=== PATIENT | female | born 1985 | race Two or more races ===

== ENCOUNTER 2023-05-30 21:13 | Outpatient (REF) | payer BC, SELFPAY ==
[2023-06-03 16:08] LABS: Age Gdln ACOG Testing Note (.); HPV Aptima Negative (Negative); IGP, Aptima HPV, rfx 16/18,45 Note (.)
== END 2023-05-30 21:14 | disposition home or self-care (01) ==
LOC: LAB 21:13
PROVIDERS: Visit Provider Obstetrics & Gynecology
DX: Z01.419 Encounter for gynecological examination (general) (routine) without abnormal findings (principal)
CPT/HCPCS: 87624; G0145

== ENCOUNTER 2024-06-05 19:57 | Outpatient (REF) | payer BC, SELFPAY ==
--- OUTSIDE RECORDS SUMMARY | 2024-06-05 20:01 | XMS_ITS | CCD ---
Author Organization [facility] Care Team Providers Care Venue Coordinator Name Role Phone RADHA, DR SOLIZ Attending Unavailable RADHA, DR SOLIZ Admitting Unavailable RADHA, DR SOLIZ Consulting Unavailable RADHA, DR SOLIZ Attending Unavailable RADHA, DR SOLIZ Admitting Unavailable RADHA, DR SOLIZ Consulting Unavailable RADHA, DR SOLIZ Consulting Unavailable RADHA, DR SOLIZ Attending Unavailable RADHA, DR SOLIZ Admitting Unavailable RADHA, MARTÍNEZ Attending Unavailable RADHA, MARTÍNEZ Attending Unavailable Valentin Sonia PRICE Primary Care Provider VALENTIN, MUHAMID M Referring Unavailable VALENTIN, MUHAMID M Primary Care Unavailable VALENTIN, MUHAMID M Referring Unavailable VALENTIN, MUHAMID M Primary Care Unavailable VALENTIN, MUHAMID M Referring Unavailable VALENTIN, MUHAMID M Primary Care Unavailable VALENTIN, MUHAMID M Referring Unavailable VALENTIN, MUHAMID M Primary Care Unavailable VALENTIN, MUHAMID M Attending Unavailable VALENTIN, MUHAMID M Referring Unavailable VALENTIN, MUHAMID M Primary Care Unavailable VALENTIN, MUHAMID M Attending Unavailable VALENTIN, MUHAMID M Referring Unavailable VALENTIN, MUHAMID M Primary Care Unavailable DAYDAY MELENDEZ Attending Unavailable VALENTIN, MUHAMID M Referring Unavailable VALENTIN, MUHAMID M Primary Care Unavailable VALENTIN, MUHAMID M Attending Unavailable VALENTIN, MUHAMID M Referring Unavailable VALENTIN, MUHAMID M Primary Care Unavailable VALENTIN, MUHAMID M Referring Unavailable VALENTIN, MUHAMID M Primary Care Unavailable Valentin Sonia PRICE Primary Care Provider [phone] Medications Current Medications Medication Drug Class(es) Dates Sig (Normalized) Sig (Original) cholecalciferol 0.025 mg oral tablet (4 sources) Vitamin D Start: 01-04-2024 take 1 tablet by mouth once in the morning cholecalciferol 1,000 units tablet Indications: Vitamin D deficiency Take 1 tablet (1,000 Units total) by mouth in the morning. 90 tablet 2 01/04/2024 Active ergocalciferol 1.25 mg oral capsule (2 sources) Provitamin D2 Compound Start: 09-26-2023 End: 11-15-2023 take 1 capsule by mouth every week ergocalciferol (VITAMIN D2) 1,250 mcg (50,000 unit) capsule Indications: Vitamin D deficiency Take 1 capsule (50,000 Units total) by mouth once a week for 8 doses. 8 capsule 0 09/26/2023 11/15/2023 Active levonorgestrel 0.572030 mg/hr intrauterine system (14 sources) Progestin, Progestin-contain ing Intrauterine Device Start: 06-27-2023 Levonorgestrel intrauterine device Levonorgestrel 2 0 MCG/DAY intrauterine device 1 each by Intrauterine route if needed (.). Active levonorgestrel ( MIRENA) 20 mcg/24 hours (5 yrs) 52 mg IUD 1 each by intrauterine route once. Active levothyroxine sodium 0.025 mg oral tablet (17 sources) l-Thyroxine Start: 06-05-2024 End: 06-05-2025 take 1 tablet by mouth before mealtime levothyroxine (Synthroid) 25 MCG tablet Indications: Thyroid disease (CMS/HCC) Take 1 tablet (25 mcg) by mouth in the morning. Take before meals. 30 tablet 11 06/05/2024 06/05/2025 Active Start: 05-13-2024 take 1 tablet by fabián th in the morning levothyroxine (SYNTHROID, LEVOTHROID) 112 MCG tablet Take 1 tablet (112 mcg total) by mouth in the morning. 90 tablet 1 05/13/2024 Active Start: 02-08-2024 End: 05-13-2024 take 1 tablet by mouth in the morning levothyroxine (SYNTHROID, LEVOTHROID) 100 MCG tablet Indications: Other specified hypothyroidism Take 1 tablet (100 mcg total) by mouth in the morning. 90 tablet 1 02/08/2024 05/13/2024 Discontinued Start: 09-26-2023 End: 10-02-2023 take 1 tablet by mouth in the morning levothyroxine (SYNTHROID, LEVOTHROID) 150 MCG tablet Indications: Other specified hypothyroidism Take 1 tablet (150 mcg total) by mouth in the morning. 30 tablet 2 10/02/2023 Active Start: 08-10-2023 End: 09-26-2023 take 1 tablet by mouth in the morning levothyroxine (SYNTHROID, LEVOTHROID) 175 MCG tablet Indications: Other specified hypothyroidism Take 1 tablet (175 mcg total) by mouth in the morning. 30 tablet 2 08/10/2023 09/26/2023 Discontinued Start: 06-11-2023 End: 08-10-2023 take 1 tablet by mouth in the morning levothyroxine (SYNTHROID, LEVOTHROID) 125 MCG tablet Indications: Other specified hypothyroidism TAKE 1 TABLET (125 MCG TOTAL) BY MOUTH IN THE MORNING 90 tablet 0 06/11/2023 08/10/2023 Discontinued levothyroxine (S ynthroid, Levoxyl) 125 MCG tablet Take 112 mcg by mouth in the morning. Take before meals. Active mirtazapine 7.5 mg oral tablet (1 source) Start: 05-13-2024 take 1 tablet by mouth once daily mirtazapine (REMERON) 7.5 mg tablet Take 1 tablet (7.5 mg total) by mouth nightly. 90 tablet 2 05/13/2024 Active Problems Active Problems Problem Classification Problem Date Documented Date Episodic/Chronic Immunizations and screening for infectious disease (2 sources) Encounter for screening for human papillomavirus (HPV); Translations: [Encounter for screening for infections with a predominantly sexual mode of transmission] Onset: 01-24-2022 Episodic Nutritional deficiencies (3 sources) Vitamin D deficiency; Translations: [Vitamin D deficiency, unspecified] Onset: 09-26-2023 09-26-2023 Chronic Other nutritional; endocrine; and metabolic disorders (1 source) Obesity Onset: 09-26-2023 Chronic Other screening for suspected conditions (not mental disorders or infectious disease) (4 sources) Encounter for screening for malignant neoplasm of cervix; Translations: [ENC SCREENING MALIG NEOPLASM CERV] Onset: 05-25-2022 Episodic Thyroid disorders (20 sources) Acquired hypothyroidism; Translations: [Hypothyroidism, unspecified] Onset: 11-21-2018 08-08-2023 Chronic Thyroid disorders (2 sources) Disorder of thyroid gland; Translations: [Disorder of thyroid, unspecified] 06-05-2024 Episodic Unclassified (1 source) Results Onset: 12-05-2023 Unclassified (1 source) Thyroid Problem Onset: 09-26-2023 Unclassified (1 source) Establish Care Onset: 08-10-2023 Past or Other Problems Problem Classification Problem Date Documented Date Episodic/Chronic Genitourinary symptoms and ill-defined conditions (4 sources) Unspecified symptoms and signs involving the genitourinary system; Translations: [UNS SYMPTOMS SIGNS INVLV SYSTEM] Onset: 01-20-2022 Episodic Mood disorders (8 sources) Mood disorders Onset: 11-18-2021 11-18-2021 Other female genital disorders (1 source) Other specified noninflammatory disorders of vagina; Translations: [OTH SPEC NONINFLAMMATORY D/O VAGINA] Onset: 01-24-2022 Episodic Unclassified (8 sources) Onset: 05-18-2021 05-18-2021 Results Test Name Value Interpretation Reference Range Facility FREE T4on 04-26-2024 Free T4 [Mass/Vol] 1.00 ng/dL Normal 0.61-1.60 [facility] Comment on above: Performed By: #### T [facility], 3024-7 #### [facility] ([id number]) [address] [place] [address] TSH WITH REFLEXon 04-26-2024 TSH 6.15 uIU/mL High 0.49-4.67 [facility] Comment on above: Performed By: #### T [facility], 3024-7 #### [facility] ([id number]) [address] [place] [address] FREE T4on 02-07-2024 Free T4 [Mass/Vol] 1.17 ng/dL Normal 0.61-1.60 [facility] Comment on above: Performed By: #### 2 4331-1, THYR, THYRAB #### [facility] ([id number]) [address] [place] [address] THYROID ANTIBODIESon 024 Thyroglobulin Ab Qn [IU]/mL Normal <4.0 [facility] Comment on above: Performed By: #### 2 4331-1, THYR, THYRAB #### [facility] ([id number]) [address], [address] [place] [address] TPO Ab Qn 1 [IU]/mL Normal <10 [facility] Comment on above: Performed By: #### 2 4331-1, THYR, THYRAB #### [facility] ([id number]) [address], [address] [place] [address] TSH WITH REFLEXon 02-07-2024 TSH 0.23 uIU/mL Low 0.49-4.67 [facility] Comment on above: Performed By: #### 2 4331-1, THYR, THYRAB #### [facility] ([id number]) [address], [address] [place] [address] FREE T4on 12-04-2023 Free T4 [Mass/Vol] 1.22 ng/dL Normal 0.61-1.60 [facility] Comment on above: Performed By: #### 2 4331-1, THYR, THYRAB #### [facility] ([id number]) [address], [address] [place] [address] TSH WITH REFLEXon 12-04-2023 TSH 0.03 uIU/mL Low 0.49-4.67 [facility] Comment on above: Performed By: #### 2 4331-1, THYR, THYRAB #### [facility] ([id number]) [address], [address] [place] [address] Vitamin D+Metabolites [Mass/ Vol]on 12-04-2023 VITAMIN D 25 HYD TOT 19.3 ng/mL Low 30-100 [facility] Comment on above: Result Comment: Vitamin D status 25 [place] Vitamin D Deficiency <20 ng/mL Insufficiency 20-29 ng/mL Sufficiency 30-100 ng/mL Toxicity >100 ng/mL NOTE: A pediatric reference range has not been established by the improvement leader of this kit. The [place] [employer] recommends a Vitamin D level of = or >20ng/mL in infants and children. Performed By: #### 2 4331-1, THYR, THYRAB #### [facility] ([id number]) [address] [address] CBC AND AUTO DIFFon 09-26-19 ABSOLUTE BASOPHIL 0.0 X10E9/L Normal 0.0-0.2 [facility] Comment on above: Performed By: #### C BCA, CMP, 53748-7, , TSHR, 38540-6, 3024-7 #### [facility] ([id number]) [address] [place] [address] ABSOLUTE NEUTROPHIL 2.5 X10E9/L Normal 1.5-6.6 [facility] Comment on above: Performed By: #### C BCA, CMP, 50228-7, , TSHR, 33149-4, 3024-7 #### [facility] ([id number]) [address] [address] Basophils/100 WBC (Bld) 0.7 % Normal [facility] Comment on above: Performed By: #### C BCA, CMP, 83499-7, 42428-0, TSHR, 14282-1, 3024-7 #### [facility] ([id number]) [address] [address] [facility] [place] [address] Eosinophils (Bld) [#/Vol] 0.1 10*3/uL Normal 0.0-0.4 [facility] Comment on above: Performed By: #### C BCA, CMP, 90366-0, 55435-8, TSHR, 49083-7, 302-7 #### [facility] ([id number]) [address] [place] [address] Eosinophils/100 WBC (Bld) 1.5 % Normal [facility] Comment on above: Performed By: #### C BCA, CMP, 70323-3, , TSHR, 83593-9, 302-7 #### [facility] ([id number]) [address] [address] [place] [address] Erythrocyte distribution width (RBC) [Ratio] 12.7 % Normal 11.5-15.0 [facility] Comment on above: Performed By: #### C BCA, CMP, 37667-3, , TSHR, 70799-6, 3023-7 #### [facility] ([id number]) [address] [address] [place] [address] Hematocrit (Bld) [Volume fraction] 37.1 % Normal 35-47 [facility] Comment on above: Performed By: #### C BCA, CMP, 76618-3, , TSHR, 21944-8, 302-7 #### [facility] ([id number]) [address] [address] [place] [address] Hemoglobin (Bld) [Mass/Vol] 12.8 g/dL Normal 11.7-15.5 [facility] Comment on above: Performed By: #### C BCA, CMP, 93528-3, , TSHR, 24902-2, 3024-7 #### [facility] ([id number]) [address] [address] [place] [address] Lymphocytes (Bld) [#/Vol] 1.9 10*3/uL Normal 1.0-3.5 [facility] Comment on above: Performed By: #### C BCA, CMP, 82604-7, 61770-9, TSHR, 89223-8, 3023-7 #### [facility] ([id number]) [address], [address] [place] [address] Lymphocytes/100 WBC (Bld) 39.0 % Normal [facility] Comment on above: Performed By: #### C BCA, CMP, 18751-2, , TSHR, 37286-4, 3023-7 #### [facility] ([id number]) [address], [address] [place] [address] MCH (RBC) [Entitic mass] 31.1 pg Normal 27-34 [facility] Comment on above: Performed By: #### C BCA, CMP, 55344-7, , TSHR, 27043-5, 3023- #### [facility] ([id number]) [address], [address] [place] [address] MCHC (RBC) [Mass/Vol] 34.6 g/dL Normal 32-36 [facility] Comment on above: Performed By: #### C BCA, CMP, 54066-8, , TSHR, 35585-1, 3023- #### [facility] ([id number]) [address], [address] [place] [address] MCV (RBC) [Entitic vol] 90 fL Normal 80-100 [facility] Comment on above: Performed By: #### C BCA, CMP, 94227-9, , TSHR, 89983-9, 3023-7 #### [facility] ([id number]) [address], [address] [place] [address] Monocytes (Bld) [#/Vol] 0.5 10*3/uL Normal 0-0.9 [facility] Comment on above: Performed By: #### C BCA, CMP, 51676-4, , TSHR, 89481-8, 3023-7 #### [facility] ([id number]) [address], [address] [place] [address] Monocytes/100 WBC (Bld) 9.5 % Normal [facility] Comment on above: Performed By: #### C BCA, CMP, 85760-7, 65192-5, TSHR, 43430-7, 3024-7 #### [facility] ([id number]) [address], [address] [place] [address] Neutrophils/100 WBC (Bld) 49.3 % Normal [facility] Comment on above: Performed By: #### C BCA, CMP, 32951-4, 03299-2, TSHR, 70952-7, 3024-7 #### [facility] ([id number]) [address], [address] [place] [address] Platelet mean volume (Bld) [Entitic vol] 8.0 fL Normal 7-12 [facility] Comment on above: Performed By: #### C BCA, CMP, 54362-5, 48158-5, TSHR, 51811-8, 3024-7 #### [facility] ([id number]) [address], [address] [place] [address] Platelets (Bld) [#/Vol] 269 10*3/uL Normal 150-450 [facility] Comment on above: Performed By: #### C BCA, CMP, 84313-4, 90395-5, TSHR, 66429-5, 3024-7 #### [facility] ([id number]) [address], [address] [place] [address] RBC COUNT 4.13 X10E12/L Normal 3.80-5.20 [facility] Comment on above: Performed By: #### C BCA, CMP, 10181-1, 54539-4, TSHR, 20565-5, 3024-7 #### [facility] ([id number]) [address], [address] [place] [address] WBC (Bld) [#/Vol] 5.0 10*3/uL Normal 4.0-11.0 [facility] Comment on above: Performed By: #### C BCA, CMP, 49527-1, 71291-6, TSHR, 90395-2, 3024-7 #### [facility] ([id number]) [address], [address] [place] [address] COMPREHENSIVE METABOLIC PANE Vance 09-26-2023 Albumin [Mass/Vol] 4.1 g/dL Normal 3.2-5.3 [facility] Comment on above: Performed By: #### C BCA, CMP, 83198-1, 09071-5, TSHR, 47381-1, 3024-7 #### [facility] ([id number]) [address], [address] [place] [address] ALP [Catalytic activity/Vol] 44 U/L Normal 39-130 [facility] Comment on above: Performed By: #### C BCA, CMP, 63427-3, 57334-0, TSHR, 86850-9, 3024-7 #### [facility] ([id number]) [address], [address] [place] [address] ALT [Catalytic activity/Vol] 13 U/L Normal 0-31 [facility] Comment on above: Performed By: #### C BCA, CMP, 70417-6, 70865-9, TSHR, 10450-7, 3024-7 #### [facility] ([id number]) [address], [address] [place] [address] Anion gap [Moles/Vol] 7 mmol/L Normal 5-15 [facility] Comment on above: Performed By: #### C BCA, CMP, 81861-7, 61314-1, TSHR, 29259-6, 3024-7 #### [facility] ([id number]) [address], [address] [place] [address] AST [Catalytic activity/Vol] 16 U/L Normal 0-41 [facility] Comment on above: Performed By: #### C BCA, CMP, 76473-5, 83821-2, TSHR, 29632-1, 3024-7 #### [facility] ([id number]) [address], [address] [place] [address] Bilirubin [Mass/Vol] 0.6 mg/dL Normal 0.3-1.2 [facility] Comment on above: Performed By: #### C BCA, CMP, 27973-1, , TSHR, 93983-9, 3024-7 #### [facility] ([id number]) [address], [address] [place] [address] Calcium [Mass/Vol] 9.4 mg/dL Normal 8.5-10.5 [facility] Comment on above: Performed By: #### C BCA, CMP, 54163-4, , TSHR, 00308-3, 3024-7 #### [facility] ([id number]) [address], [address] [place] [address] Chloride [Moles/Vol] 107 mmol/L Normal 98-109 [facility] Comment on above: Performed By: #### C BCA, CMP, 58012-7, , TSHR, 58115-3, 3024-7 #### [facility] ([id number]) [address], [address] [place] [address] CO2 [Moles/Vol] 26 mmol/L Normal 22-32 [facility] Comment on above: Performed By: #### C BCA, CMP, 68426-4, 24560-5, TSHR, 01136-6, 3024-7 #### [facility] ([id number]) [address], [address] [place] [address] Creatinine [Mass/Vol] 0.63 mg/dL Normal 0.40-1.00 [facility] Comment on above: Result Comment: METH OD TRACEABLE TO IDMS STANDARD Performed By: #### C BCA, CMP, 04611-0, 98384-7, TSHR, 56086-8, 3024-7 #### [facility] ([id number]) [address] [place] [address] eGFR (CKD-EPI) NON-RACE DEPENDENT >90 Normal >59 [facility] Comment on above: Result Comment: Reported eGFR is based on the CKD-EPI 2020 equation that does not use a race coefficient. Performed By: #### C BCA, CMP, 77798-8, 47521-7, TSHR, 95501-7, 3024-7 #### [facility] ([id number]) [address], [address] [place] [address] Glucose [Mass/Vol] 87 mg/dL Normal 65-99 [facility] Comment on above: Performed By: #### C BCA, CMP, 89097-6, 97575-2, TSHR, 41381-0, 3024-7 #### [facility] ([id number]) [address], [address] [place] [address] Potassium [Moles/Vol] 4.2 mmol/L Normal 3.5-5.0 [facility] Comment on above: Performed By: #### C BCA, CMP, 24803-5, 79749-9, TSHR, 59267-9, 3024-7 #### [facility] ([id number]) [address] [place] [address] Protein [Mass/Vol] 6.9 g/dL Normal 6.0-8.0 [facility] Comment on above: Performed By: #### C BCA, CMP, 53550-3, 26385-6, TSHR, 63514-7, 3024-7 #### [facility] ([id number]) [address], [address] [place] [address] Sodium [Moles/Vol] 140 mmol/L Normal 134-146 [facility] Comment on above: Performed By: #### C BCA, CMP, 76699-0, 03352-2, TSHR, 47112-6, 3024-7 #### [facility] ([id number]) [address], [facility] [address] [place] [address] Urea nitrogen [Mass/Vol] 14 mg/dL Normal 5-23 [facility] Comment on above: Performed By: #### C BCA, CMP, 12943-4, 91917-9, TSHR, 50146-9, 3024-7 #### [facility] ([id number]) [address], [facility] [address] [place] [address] FREE T4on 09-26-2023 Free T4 [Mass/Vol] 1.10 ng/dL Normal 0.61-1.60 [facility] Comment on above: Performed By: #### C BCA, CMP, 03144-7, 77860-6, TSHR, 89036-9, 3024-7 #### [facility] ([id number]) [address], [facility] [address] [place] [address] Lipid 1996 panelon 4 Cholesterol [Mass/Vol] 146 mg/dL Low 150-200 [facility] Comment on above: Performed By: #### C BCA, CMP, 72738-5, 26871-5, TSHR, 88921-3, 3024-7 #### [facility] ([id number]) [address], [address] [place] [address] Cholesterol in HDL [Mass/Vol] 42 mg/dL Normal >39 [facility] Comment on above: Result Comment: HDL <40 mg/dL - High Risk HDL > or = 40mg/dL- Desirable HDL >60 mg/dL - Negative Risk Performed By: #### C BCA, CMP, 64507-7, 59639-9, TSHR, 78499-7, 3024-7 #### [facility] ([id number]) [address], [address] [place] [address] Cholesterol in LDL [Mass/Vol] 84 mg/dL Normal <130 [facility] Comment on above: Result Comment: LDL <100 mg/dL - Desirable LDL >160 mg/dL - High Risk Performed By: #### C BCA, CMP, 64265-9, 78684-9, TSHR, 20322-2, 3024-7 #### [facility] ([id number]) [address], [address] [place] [address] Cholesterol in VLDL [Mass/Vol] 20 mg/dL Normal 0-30 [facility] Comment on above: Performed By: #### C BCA, CMP, 93158-0, 09123-1, TSHR, 45135-3, 3024-7 #### [facility] ([id number]) [address], [address] [place] [address] CHOLESTEROL:HDL 3.5 Normal 1.0-5.0 [facility] Comment on above: Performed By: #### Darius BCA, CMP, 89228-7, 13973-7, TSHR, 68737-4, 3024-7 #### [facility] ([id number]) [address], [address] [place] [address] Triglyceride [Mass/Vol] 101 mg/dL Normal 27-150 [facility] Comment on above: Performed By: #### C BCA, CMP, 14751-0, 54820-3, TSHR, 84358-5, 3024-7 #### [facility] ([id number]) [address], [address] [place] [address] MAGNESIUMon 09-26-2023 Magnesium [Mass/Vol] 1.9 mg/dL Normal 1.8-2.6 [facility] Comment on above: Performed By: #### C CHATO, ISAMAR, 20136-5, , TSHR, 38505-3, 3024-7 #### [facility] ([id number]) [address], [address] [place] [address] TSH WITH REFLEXon 09-26-2023 TSH 0.06 uIU/mL Low 0.49-4.67 [facility] Comment on above: Performed By: #### C CHATO, ISAMAR, 07883-2, , TSHR, 88054-6, 3024-7 #### [facility] ([id number]) [address] [place] [address] Vitamin D+Metabolites [Mass/ Vol]on 09-26-2023 VITAMIN D 25 HYD TOT 16.3 ng/mL Low 30-100 [facility] Comment on above: Result Comment: Vitamin D status 25 [place] Vitamin D Deficiency <20 ng/mL Insufficiency 20-29 ng/mL Sufficiency 30-100 ng/mL Toxicity >100 ng/mL NOTE: A pediatric reference range has not been established by the improvement leader of this kit. The [place] [employer] recommends a Vitamin D level of = or >20ng/mL in infants and children. Performed By: #### C CHATO, CMP, 53331-2, , TSHR, 75081-3, 3024-7 #### [facility] ([id number]) [address], [address] [place] [address] Lipid 1996 panelon 4 Cholesterol [Mass/Vol] 175 mg/dL 150 - 200 mg/dL [facility] Cholesterol in HDL [Mass/Vol] 52 mg/dL 39 - PINF mg/dL [facility] Comment on above: HDL <40 mg/dL - High Risk HDL > or = 40mg/dL- Desirable HDL >60 mg/dL - Negative Risk Cholesterol in LDL [Mass/Vol] 98 mg/dL NINF - 130 mg/dL [facility] Comment on above: LDL <100 mg/dL - Desirable LDL >160 mg/dL - High Risk Cholesterol in VLDL [Mass/Vol] 25 mg/dL 0 - 30 mg/dL [facility] Cholesterol.total/Ch olesterol in HDL [Mass ratio] 3.4 {ratio} 1.0 - 5.0 [facility] Triglyceride [Mass/Vol] 126 mg/dL 27 - 150 mg/dL [facility] Cholesterol [Mass/Vol] 175 mg/dL Normal 150-200 [facility] Comment on above: Performed By: #### 2 4331-1CHELSIE THYRAB #### [facility] ([id number]) [address], [address] [place] [address] Cholesterol in HDL [Mass/Vol] 52 mg/dL Normal >39 [facility] Comment on above: Result Comment: HDL <40 mg/dL - High Risk HDL > or = 40mg/dL- Desirable HDL >60 mg/dL - Negative Risk Performed By: #### 2 4331-1, ANDREW HOLGUIN #### [facility] [facility] ([id number]) [address] [place] [address] Cholesterol in LDL [Mass/Vol] 98 mg/dL Normal <130 [facility] Comment on above: Result Comment: LDL <100 mg/dL - Desirable LDL >160 mg/dL - High Risk Performed By: #### 2 4331-1, THYR, THYRAB #### [facility] ([id number]) [address] [address] [place] [address] Cholesterol in VLDL [Mass/Vol] 25 mg/dL Normal 0-30 [facility] Comment on above: Performed By: #### 2 4331-1, THYR, THYRAB #### [facility] ([id number]) [address] [facility] [address] [place] [address] CHOLESTEROL:HDL 3.4 Normal 1.0-5.0 [facility] Comment on above: Performed By: #### 2 4331-1, THYR, THYRAB #### [facility] ([id number]) [address] [facility] [address] [place] [address] Triglyceride [Mass/Vol] 126 mg/dL Normal 27-150 [facility] Comment on above: Performed By: #### 2 4331-1, THYR, THYRAB #### [facility] ([id number]) [address], [facility] [address] [place] [address] THYROID ANTIBODIESon 024 Thyroglobulin Ab Qn [IU]/mL Normal <4.0 [facility] Comment on above: Performed By: #### 2 4331-1, THYR, THYRAB #### [facility] ([id number]) [address] [facility] [address] [place] [address] TPO Ab Qn 2 [IU]/mL Normal <10 [facility] Comment on above: Performed By: #### 2 4331-1, THYR, THYRAB #### [facility] ([id number]) [address], [address] [place] [address] THYROID PROFILEon 08-09-2023 Free T4 [Mass/Vol] 0.71 ng/dL Normal 0.61-1.60 [facility] Comment on above: Performed By: #### 2 4331-1, THYR, THYRAB #### [facility] ([id number]) [address], [address] [place] [address] TSH 8.33 uIU/mL High 0.49-4.67 [facility] Comment on above: Performed By: #### 2 4331-1, THYR, THYRAB #### [facility] ([id number]) [address], [address] [place] [address] Thyroid antibodies includes TPO and TGABon 08-09-2023 Thyroglobulin Ab Qn [facility] TPO Ab Qn 2 [IU]/mL [facility] Thyroid profile includes TSH FT4on 08-09-2023 Free T4 [Mass/Vol] 0.71 ng/dL 0.61 - 1. 60 ng/dL [facility] Interpretation and review of laboratory results Abnormal [facility] TSH Qn 8.33 m[IU]/L High [facility] Cytology Cervical or vaginal smear or scraping studyOrdered By: Caitlyn Courtney on 05-30-2023 [facility] e PAP ACOG PANEL 2: 30 to 65on 06-03-2022 . . Normal [facility] Comment on above: Result Comment: Perf ormed at: WB Performed By: #### 4 [id number] #### [facility] [address] [place] [address] Dr. Nicole Buckley Age Gdln ACOG Testing 30-65 Normal [facility] Comment on above: Performed By: #### 4 [id number] #### [facility] [address] [place] [address] Dr. Nicole Buckley DIAGNOSIS: Comment Normal [facility] Comment on above: Result Comment: NEGA TIVE FOR INTRAEPITHELIAL LESION OR MALIGNANCY. Performed at: WB Performed By: #### 4 [id number] #### [facility] [address] [place] [address] Dr. Nicole Buckley HPV Aptima Negative Normal Negative [facility] Comment on above: Result Comment: This nucleic acid amplification test detects fourteen high-risk HPV types (16,18,31,33,35,39,45,51,52,56,58,59,66,68) without differentiation. Performed at: =G Performed By: #### 4 [id number] #### [facility] [address] [place] [address] Dr. Nicole Buckley HPV Genotype Reflex Comment Normal [facility] Comment on above: Result Comment: Crit eria not met, HPV Genotype not performed. Performed at: WB Performed By: #### 4 [id number] #### [facility] [address] [place] [address] Dr. Nicole Buckley Methodology: Comment Normal [facility] Comment on above: Result Comment: This liquid based ThinPrep(R) pap test was screened with the use of an image guided system. Performed at: WB Performed By: #### 4 [id number] #### [facility] [address] [place] [address] Dr. Nicole Buckley Note: Comment Normal [facility] Comment on above: Result Comment: The Pap smear is a screening test designed to aid in the detection of premalignant and malignant conditions of the uterine cervix. It is not a diagnostic procedure and should not be used as the sole means of detecting cervical cancer. Both false-positive and false-negative reports do occur. . Performed at: WB Performed By: #### 4 [id number] #### [facility] [address] [place] [address] Dr. Nicole Buckley Performed by: Comment Normal [facility] Comment on above: Result Comment: William Hay Massage Therapist (ASCP) Performed at: WB Performed By: #### 4 [id number] #### [facility] [address] [place] [address] Dr. Nicole Buckley Specimen adequacy: Comment Normal [facility] Comment on above: Result Comment: Sati sfactory for evaluation. Endocervical and/or squamous metaplastic cells (endocervical component) are present. Performed at: WB Performed By: #### 4 [id number] #### [facility] [address] [place] [address] Dr. Nicole Buckley CHLAMYDIA/GONOCOCCUS PAYAL (SW AB/URINE/PAPon 01-24-2022 Chlamydia trachomatis, PAYAL Negative Normal Negative [facility] Comment on above: Performed By: #### C T/NGNA #### [facility] [address] [place] [address] Dr. Nicole Buckley Neisseria gonorrhoeae, PAYAL Negative Normal Negative [facility] Comment on above: Performed By: #### C T/NGNA #### [facility] [address] [place] [address] Dr. Nicole Buckley VAGINITIS/VAGINOSIS DNA PROB Socrates 01-23-2022 Margareth species Negative Normal Negative [facility] Comment on above: Performed By: #### V AGINT #### [facility] [address] [place] [address] Dr. Nicole Buckley Gardnerella vaginalis Negative Normal Negative [facility] Comment on above: Performed By: #### V AGINT #### [facility] [address] [place] [address] Dr. Nicole Buckley Trichomonas vaginalis Negative Normal Negative [facility] Comment on above: Performed By: #### V AGINT #### [facility] [address] [place] [address] Dr. Nicole Buckley CULTURE URINEon 01-20-2022 CULTURE URINE Culture Observations : NO GROWTH. Normal [facility] Comment on above: Performed By: #### U RCX #### [facility] [address] [place] [address] Dr. Nicole Buckley UA RANDOMon 01-20-2022 Bilirubin Ql (U) Negative Normal NEGATIVE [facility] Comment on above: Performed By: #### U A #### [facility] [address] [place] [address] Dr. Nicole Buckley Clarity (U) CLEAR Normal CLEAR [facility] Comment on above: Performed By: #### U A #### [facility] [address] [place] [address] Dr. Nicole Buckley Color (U) YELLOW Normal YELLOW [facility] Comment on above: Performed By: #### U A #### [facility] [address] [place] [address] Dr. Nicole Buckley Glucose Ql (U) Negative Normal NEGATIVE [facility] Comment on above: Performed By: #### U A #### [facility] [address] [place] [address] Dr. Nicole Buckley Hemoglobin Ql (U) Negative Normal NEGATIVE [facility] Comment on above: Performed By: #### U A #### [facility] [address] [place] [address] Dr. Nicole Buckley Ketones Ql (U) Negative Normal NEGATIVE [facility] Comment on above: Performed By: #### U A #### [facility] [address] [place] [address] Dr. Nicole Buckley LEUKOCYTES Negative Normal NEGATIVE [facility] Comment on above: Performed By: #### U A #### [facility] [address] [place] [address] Dr. Nicole Buckley Nitrite Ql (U) Negative Normal NEGATIVE [facility] Comment on above: Performed By: #### U A #### [facility] [address] [place] [address] Dr. Nicole Buckley pH (U) 7.0 [pH] Normal 5-9 [facility] Comment on above: Performed By: #### U A #### [facility] [address] [place] [address] Dr. Nicole Buckley SPEC GRAVITY 1.020 Normal 1.005-<=1.025 [facility] Comment on above: Performed By: #### U A #### [facility] [address] [place] [address] Dr. Nicole Buckley UA PROTEIN Negative Normal NEGATIVE/ TRACE [facility] Comment on above: Performed By: #### U A #### [facility] [address] [address] [address] Nicole Buckley Urobilinogen Qn (U) 0.2 {[place]'U}/dL Normal 0.2 - 1. 0 [facility] Comment on above: Performed By: #### U A #### [facility] [address] [address] [address] Nicole Buckley Vital Signs Date Time Vital Sign Value Performing Clinician Facility 06-05-2024 15:27-0500 Body mass index (BMI) [Ratio] 31.21 kg/m2 Martínez Radha DO Work Phone: [facility] 06-05-2024 15:27-0500 Body weight 82.46 kg Martínez Radha DO Work Phone: [facility] 06-05-2024 15:27-0500 Diastolic blood pressure 64 mm[Hg] Martínez Radha DO Work Phone: [facility] 06-05-2024 15:27-0500 Systolic blood pressure 110 mm[Hg] Martínez Radha DO Work Phone: [facility] 09-26-2023 16:04-0400 Body height 162.6 cm Sonia Hanson MD Work Phone: [facility] 09-26-2023 16:04-0400 Body mass index (BMI) [Ratio] 31.24 kg/m2 Sonia Hanson MD Work Phone: [facility] 09-26-2023 16:04-0400 Body temperature 98.1 [degF] Sonia Hanson MD Work Phone: [facility] 09-26-2023 16:04-0400 Body weight 82.56 kg Sonia Hanson MD Work Phone: [facility] 09-26-2023 16:04-0400 Diastolic blood pressure 82 mm[Hg] Sonia Hanson MD Work Phone: [facility] 09-26-2023 16:04-0400 Heart rate 74 /min Sonia Hanson MD Work Phone: [facility] [employer] [facility] 09-26-2023 16:04-0400 SaO2% (BldA) [Mass fraction] 98 % Sonia Hanson MD Work Phone: [facility] [employer] 09-26-2023 16:04-0400 Systolic blood pressure 122 mm[Hg] Sonia Hanson MD Work Phone: [facility] 08-10-2023 07:36-0500 Body height 162.6 cm Sonia Hanson MD Work Phone: [facility] [employer] 08-10-2023 07:36-0500 Body mass index (BMI) [Ratio] 31.46 kg/m2 Sonia Hanson MD Work Phone: [facility] 08-10-2023 07:36-0500 Body temperature 98.6 [degF] Sonia Hanson MD Work Phone: [facility] [employer] 08-10-2023 07:36-0500 Body weight 83.19 kg Sonia Hanson MD Work Phone: [facility] [employer] 08-10-2023 07:36-0500 Diastolic blood pressure 74 mm[Hg] Sonia Hanson MD Work Phone: [facility] [employer] 08-10-2023 07:36-0500 Heart rate 89 /min Sonia Hanson MD Work Phone: [facility] 08-10-2023 07:36-0500 SaO2% (BldA) [Mass fraction] 99 % Sonia Hanson MD Work Phone: [facility] [employer] 08-10-2023 07:36-0500 Systolic blood pressure 128 mm[Hg] Sonia Hanson MD Work Phone: [facility] Encounters Encounter Date Encounter Type Care Provider Facility Start: 06-05-2024 End: 06-05-2024 Periodic preventive med est patient 18-39 yrs Martínez Radha DO Work Phone: [facility] Comment on above: Well woman exam with routine gynecological exam; Thyroid disease (CMS/HCC) Start: 06-05-2024 End: 06-05-2024 Bamboo flowsheet Martínez Radha DO Work Phone: [facility] Start: 06-05-2024 End: 06-05-2024 Bamboo flowsheet Martínez Radha DO Work Phone: [facility] Start: 06-05-2024 End: 06-05-2024 Patient encounter procedure Martínez Radha DO Work Phone: [facility] Start: 05-13-2024 End: 05-13-2024 Orders Only Sonia Hanson MD Work Phone: [facility] Start: 04-26-2024 End: 04-26-2024 Clinical Support Dayday BRUCE Work Phone: [facility] Comment on above: Primary hypothyroidi sm (Primary Dx) Start: 04-25-2024 End: 04-25-2024 Orders Only Sonia Hanson MD Work Phone: [facility] Comment on above: Acquired hypothyroid ism (Primary Dx) Start: 04-23-2024 End: 04-23-2024 Orders Only Sonia Hanson MD Work Phone: [facility] Comment on above: Acquired hypothyroid ism (Primary Dx) Start: 02-07-2024 End: 02-07-2024 ambulatory [facility] Start: 12-05-2023 End: 12-05-2023 ambulatory [facility] Start: 12-04-2023 End: 12-04-2023 ambulatory [facility] Start: 10-02-2023 Refill Adysan Feleciak [facility] Comment on above: Other specified hypo thyroidism Start: 09-26-2023 End: 09-26-2023 Office outpatient visit 25 minutes Sonia Hanson MD Work Phone: [facility] Comment on above: Vitamin D deficiency (Primary Dx); Other specified hypothyroidism Start: 09-26-2023 End: 09-26-2023 ambulatory [facility] Start: 09-26-2023 End: 09-26-2023 ambulatory [facility] Start: 09-26-2023 Encounter for genera l adult medical examination without abnormal findings [facility] Start: 08-10-2023 End: 08-10-2023 Patient encounter procedure Sonia Hanson MD Work Phone: [facility] Start: 08-10-2023 End: 08-10-2023 Periodic preventive med est patient 18-39 yrs Sonia Hanson MD Work Phone: [facility] Comment on above: Annual physical exam (Primary Dx); Other specified hypothyroidism Start: 08-10-2023 End: 08-10-2023 ambulatory [facility] Start: 08-10-2023 Encounter for genera l adult medical examination without abnormal findings [facility] Start: 08-09-2023 End: 08-09-2023 ambulatory [facility] Start: 08-08-2023 Orders Only Sonia Hanson MD Work Phone: [facility] Comment on above: Acquired hypothyroid ism (Primary Dx) Start: 06-27-2023 End: 06-27-2023 ambulatory MARTÍNEZ GARCIA Not Available Start: 05-30-2023 End: 05-30-2023 ambulatory MARTÍNEZ GARCIA Not Available Start: 05-25-2022 End: 05-25-[address] MARTÍNEZ GARCIA Facility:[facility] Start: 01-20-2022 End: 01-20-[address] MARTÍNEZ GARCIA Facility:[facility] Procedures Date Procedure Procedure Detail Performing Clinician Start: 12-05-2023 Follow-up visit Follow-up SONIA HANSON Start: 05-30-2023 Cytp cerv/vag auto t hin layer prep mnl screen Martínez Garcia DO Work Phone: Start: 11-18-2021 Adult depression screening assessment Sonia Hanson MD Work Phone: Plan of Treatment Date Care Activity Detail Author Start: 06-23-2025 End: 06-23-2025 Patient encounter procedure 06/23/2025 4:00 PM EST Office Visit [facility] [address] [place] [phone] Martínez Garcia, DO [address] [place] [address] [facility] Start: 12-04-2024 Adult BMI Screening Adult BMI Screen ing [facility] Start: 12-04-2024 Tobacco Screening Tobacco Screening [facility] Start: 09-25-2024 Adult BMI Screening Adult BMI Screen ing [facility] Start: 09-25-2024 Tobacco Screening Tobacco Screening [facility] Start: 08-10-2024 Adult BMI Screening Adult BMI Screen ing [facility] Start: 08-10-2024 Tobacco Screening Tobacco Screening [facility] Start: 04-25-2024 End: 04-25-2025 TSH with Reflex TSH with Reflex Lab Routine Acquired hypothyroidism Expected: 04/25/2024 (Approximate), Expires: 04/25/2025 [employer] Work Phone: Comment on above: Expected: 04/25/2024 (Approximate), Expires: 04/25/2025 Start: 04-23-2024 End: 04-23-2025 TSH with Reflex TSH with Reflex Lab Routine Acquired hypothyroidism Expected: 04/23/2024 (Approximate), Expires: 04/23/2025 [employer] Work Phone: Comment on above: Expected: 04/23/2024 (Approximate), Expires: 04/23/2025 Start: 03-03-2024 Influenza vaccination Influenza Vacc ine [facility] Start: 12-21-2023 Adult BMI Screening Adult BMI Screen ing [facility] Start: 12-21-2023 Tobacco Screening Tobacco Screening [facility] Start: 12-05-2023 End: 12-05-2023 Patient encounter procedure 12/05/2023 9:45 AM EDT Office Visit [facility] [address] [place] [address], [place] [phone] Sonia Hanson MD [address], [place] [address] [facility] Start: 09-26-2023 End: 09-26-2023 Patient encounter procedure 09/26/2023 4:00 PM EDT Office Visit [facility] [address] [place] [address], [place] [phone] Sonia Hanson MD [address], [place] [address] [facility] Start: 09-26-2023 End: 09-25-2024 TSH with Reflex TSH with Reflex Lab Routine Other specified hypothyroidism Expected: 09/26/2023 (Approximate), Expires: 09/25/2024 [employer] Work Phone: Comment on above: Expected: 09/26/2023 (Approximate), Expires: 09/25/2024 Start: 09-26-2023 End: 09-25-2024 Vitamin D 25 hydroxy Vitamin D 25 hydroxy Lab Routine Vitamin D deficiency Expected: 09/26/2023 (Approximate), Expires: 09/25/2024 [facility] Comment on above: Expected: 09/26/2023 (Approximate), Expires: 09/25/2024 Start: 08-10-2023 End: 08-10-2024 CBC W Auto Differential panel - Blood CBC auto differential Lab Routine Other specified hypothyroidism Annual physical exam Expected: 08/10/2023 (Approximate), Expires: 08/10/2024 [employer] Work Phone: Comment on above: Expected: 08/10/2023 (Approximate), Expires: 08/10/2024 Start: 08-10-2023 End: 08-10-2024 Comprehensive metabolic 2000 panel - Serum or Plasma Comprehensive metabolic panel Lab Routine Other specified hypothyroidism Annual physical exam Expected: 08/10/2023 (Approximate), Expires: 08/10/2024 [facility] Comment on above: Expected: 08/10/2023 (Approximate), Expires: 08/10/2024 Start: 08-10-2023 End: 08-10-2024 Magnesium [Mass/volume] in Serum or Plasma Magnesium Lab Routine Other specified hypothyroidism Annual physical exam Expected: 08/10/2023 (Approximate), Expires: 08/10/2024 [facility] Comment on above: Expected: 08/10/2023 (Approximate), Expires: 08/10/2024 Start: 08-10-2023 End: 08-10-2024 TSH with Reflex TSH with Reflex Lab Routine Other specified hypothyroidism Annual physical exam Expected: 08/10/2023 (Approximate), Expires: 08/10/2024 [facility] Comment on above: Expected: 08/10/2023 (Approximate), Expires: 08/10/2024 Start: 08-10-2023 End: 08-10-2024 Vitamin D 25 hydroxy Vitamin D 25 hydroxy Lab Routine Other specified hypothyroidism Annual physical exam Expected: 08/10/2023 (Approximate), Expires: 08/10/2024 [facility] Comment on above: Expected: 08/10/2023 (Approximate), Expires: 08/10/2024 Start: 08-10-2023 End: 08-10-2023 Patient encounter procedure 08/10/2023 7:30 AM EST Office Visit [facility] [address] [place] [phone] Sonia Hanson MD [address] [place] [address] [facility] Start: 03-03-2023 Influenza vaccination Influenza Vacc ine [facility] Start: 11-18-2022 Depression Screening Depression Scre ening [facility] Start: 12-14-2008 Screening for malign ant neoplasm of cervix Pap Smear [facility] Start: 12-14-2006 DTaP,Tdap and Td Vaccines (1 - Tdap) DTaP,Tdap and Td Vaccines (1 - Tdap) [facility] Start: 12-14-2005 Adult BMI Follow Up Plan Adult BMI Follow Up Plan [facility] Cytology Cervical or vaginal smear or scraping study Pap Smear Pathology and Cytology Routine Well woman exam with routine gynecological exam Ordered: 06/05/2024 [facility] [employer] Work Phone: Comment on above: Ordered: 06/05/2024 Human papilloma viru s DNA [Presence] in Unspecified specimen by Probe with amplification HPV DNA probe, amplified Microbiology Routine Well woman exam with routine gynecological exam Ordered: 06/05/2024 [facility] [employer] Comment on above: Ordered: 06/05/2024 End: 08-10-2024 Lipid panel Lipid panel Lab Routine Other specified hypothyroidism Annual physical exam 1 Occurrences starting 08/10/2023 until 08/10/2024 [facility] Comment on above: 1 Occurrences starti ng 08/10/2023 until 08/10/2024 Immunizations Immunization Date Immunization Notes Care Provider Fa jose NEGATED: Highlighted row has not occurred!05-18-2021 influenza, injectable, quadrivalent, preservative free Sonia Hanson MD Work Phone: [facility] Comment on above: Deferred: Patient de cision Payers Date Payer Category Payer [facility] BCBS [id number] 2019 [employer] - [employer] ANTHEM Member Subscriber Plan / Payer (Effective 2019-Present) Name: Sheila Amor Relation to Subscriber: Spouse Name: ANIKA AMOR Date of : 1989 (Home) Address: [address] [place] [address] Payer ID: [id number] (IC) Type: Not on file Address: [address] [id number] 2019 Unknown JORDAN BOOTH ACCE SS (PPO) [id number] 2019-Present [phone] [address] [id number] 1987 Unknown [id number] 2.16.840.1.818713.3.579 .2.593 1987 Unknown [id number] 2.16.840.1.733541.3.579 .2.593 1987 Unknown [id number] 2.16.840.1.333060.3.579 .2.593 1987 Unknown [id number] 2.16.840.1.983278.3.579 .2.1259 1987 Unknown [id number] 2.16.840.1.826358.3.579 .2.1259 1987 Unknown [id number] 2.16.840.1.430097.3.579 .2.1286 1987 Unknown [id number] 2.16.840.1.515479.3.579 .2.1286 1987 Unknown [id number] 2.16.840.1.727724.3.579 .2.1286 1987 Unknown [id number] 2.16.840.1.954160.3.579 .2.1286 1987 Unknown [id number] 2.16.840.1.569420.3.579 .2.6 1987 Unknown [id number] 2.16.840.1.167688.3.579 .2.1286 1987 Unknown [id number] 2.16.840.1.676615.3.579 .2.1286 1987 Unknown [id number] 2.16.840.1.109754.3.579 .2.1286 1987 Unknown [id number] 2.16.840.1.612252.3.579 .2.1286 1959 Unknown [id number] Social History Date Type Detail Facility Start: 07-27-2022 End: 05-17-2023 Tobacco smoking status [facility] Never smoked tobacco [facility] Start: 07-27-2022 Tobacco use and exposure Smokeless tobacco non-user [facility] Start: 12-20-2022 End: 06-27-2023 Alcohol intake Current drinker of alcohol (finding) [facility] Start: 11-15-2021 End: 05-17-2023 History of Social function [facility] Start: 11-15-2021 End: 05-17-2023 Social connection and isolation panel [facility] Do you belong to any clubs or organizations such as gnosticism groups, unions, fraternal or athletic groups, or school groups? No [facility] Are you now , , , , never or living with a partner? [facility] How often to you hav e a drink containing alcohol? 2-4 times a month [facility] How many standard dr inks containing alcohol do you have on a typical day? 1 or 2 [facility] How often do you hav e 6 or more drinks on 1 occasion? Never [facility] How hard is it for y ou to pay for the very basics like food, housing, medical care, and heating Not hard at all [facility] Do you feel stress - tense, restless, nervous, or anxious, or unable to sleep at night because your mind is troubled all the time - these days [OSQ] Only a little [facility] Start: 09-09-2020 Education 15 [facility] Start: 04-22-2020 Alcohol Comment rarely [facility] Start: 1985 Sex Assigned At Female [facility] Start: 11-15-2021 Gender identity Identifies as female gender (finding) [facility] Start: 11-15-2021 Sexual orientation Heterosexual (finding) [facility] Start: 02-05-2015 Sex Female (finding) [facility] How often to you hav e a drink containing alcohol? 2-3 time sa week [facility] Start: 05-17-2023 Alcohol Comment caffeine: none [facility] Clinical Notes 08-10-2023 to 06-05-2024 Nicole Zheng LPN - 06/05/2024 3:00 PM Edna Gonzales CMA - 04/26/2024 9:00 AM EDTTelephone Encounter - Alhaji Lee CMA - 10/02/2023 11:26 AM EDTMuhalex Hanson MD - 09/26/2023 4:00 PM EDT Note Date & Type Note Facility 06-05-2024 History of Presen t illness Narrative Reason for Appointment: Patient ID: Miriam Amor is a 38 y.o. female who presents for Gynecologic Exam Patient presents today for Annual Exam. MEDICATIONS Current Outpatient Medications Medication Instructions Levonorgestrel 20 MCG/DAY intrauterine device 1 each, Intrauterine, As needed levothyroxine (SYNTHROID, LEVOXYL) 112 mcg, Oral, Daily before breakfast ALLERGIES No Known Allergies PROBLEMS Active Ambulatory Problems Diagnosis Date Noted Well woman exam with routine gynecological exam 06/05/2024 Resolved Ambulatory Problems Diagnosis Date Noted No Resolved Ambulatory Problems Past Medical History: Diagnosis Date Encounter for insertion of mirena IUD Hypothyroid (CMS/HCC) HISTORY PAST MEDICAL HISTORY SOCIAL HISTORY Past Medical History: Diagnosis Date Encounter for insertion of mirena IUD Hypothyroid (CMS/HCC) Social History Tobacco Use Smoking status: Never Smokeless tobacco: Not on file Substance Use Topics Alcohol use: Yes Comment: caffeine: none Drug use: Never FAMILY HISTORY Family History Problem Relation Name Age of Onset Diabetes Father Depression Sister Anxiety disorder Sister SURGICAL HISTORY Past Surgical History: Procedure Laterality Date BREAST SURGERY Breast reduction REVIEW OF SYSTEMS Review of Systems: Review of Systems Constitutional: Negative. HENT: Negative. Eyes: Negative. Respiratory: Negative. Cardiovascular: Negative. Gastrointestinal: Negative. Genitourinary: Negative. Musculoskeletal: Negative. Skin: Negative. Neurological: Negative. All other systems reviewed and are negative. Hematological: Negative. Endocrine: Negative. Allergic/Immunologic: Negative. OBJECTIVE Objective: Physical Exam Constitutional: Appearance: Normal appearance. She is well-developed. Genitourinary: Vulva normal. Breasts: Breasts are soft. Right: Normal. Left: Normal. Cardiovascular: Rate and Rhythm: Normal rate and regular rhythm. Pulmonary: Effort: Pulmonary effort is normal. Breath sounds: Normal breath sounds. Abdominal: General: Bowel sounds are normal. There is no distension. Palpations: Abdomen is soft. Tenderness: There is no abdominal tenderness. There is no guarding or rebound. Musculoskeletal: General: No swelling. Normal range of motion. Right lower leg: No edema. Left lower leg: No edema. Neurological: Mental Status: She is alert and oriented to person, place, and time. Skin: General: Skin is warm and dry. Psychiatric: Mood and Affect: Mood normal. Behavior: Behavior normal. Vitals and nursing note reviewed. Exam conducted with a topographical drafter present. Vitals: Estimated body mass index is 31.21 kg/m as calculated from the following: Height as of 05/30/23: 5' 4 . Weight as of this encounter: 181 lb 12.8 oz. BP: 110/64 No LMP recorded. ASSESSMENT & PLAN ICD-10-CM 1. Well woman exam with routine gynecological exam Z01.419 Pap Smear HPV DNA probe, amplified Annual Exam: Patient presents today for an annual exam. Patient states she is doing well and has complaints of thyroid being off and waiting on referral to hardness inspector from PCP. Increased synthroid by 25mcg. Pap was obtained without difficulty. Orders Placed This Encounter Procedures HPV DNA probe, amplified Follow Up: Patient is to return in one year for annual unless needed otherwise. Documented by Nicole Zheng LPN on behalf of: Martínez Garcia DO documented in this encounter [facility] 04-26-2024 History of Presen t illness Narrative Venipuncture performed in the left arm. No adverse reactions. documented in this encounter [facility] 10-02-2023 Miscellaneous Notes Formattin g of this note might be different from the original. Pharmacy requesting 90 day supply documented in this encounter [facility] 10-02-2023 Telephone encount er Note Pharmacy requesting 90 day supply [facility] 09-26-2023 History of Presen t illness Narrative Images from the original note were not included. [address] [place] [id number] Patient: Sheila Amor Date of : 1985 Encounter Date: 09/26/2023 SUBJECTIVE: Chief Complaint: Chief Complaint Patient presents with Obesity Thyroid Problem Patient ID: Sheila Amor is a 37 y.o. female. Pleasant 37-year-old female here for interval assessment of her thyroid and metabolic labs. Blood work was completed is indicative of low TSH and very very low vitamin-D. Patient endorses having a very challenging month where her activity level was increased and she felt drastically more fatigue out of energy whole time. Does not take any vitamin supplements. The following portions of the patient's history were reviewed and updated as appropriate: allergies, current medications, past family history, past medical history, past social history, past surgical history and problem list. PHYSICAL EXAMINATION: Vitals: 09/26/23 1604 BP: 122/82 Pulse: 74 Temp: 36.7 C (98.1 F) SpO2: 98% Weight: 82.6 kg (182 lb) Height: 162.6 cm (5' 4 ) Physical Exam Vitals reviewed. Constitutional: General: She is not in acute distress. Appearance: Normal appearance. Eyes: Extraocular Movements: Extraocular movements intact. Pupils: Pupils are equal, round, and reactive to light. Cardiovascular: Rate and Rhythm: Normal rate and regular rhythm. Pulses: Normal pulses. Heart sounds: Normal heart sounds. Pulmonary: Effort: Pulmonary effort is normal. No respiratory distress. Breath sounds: Normal breath sounds. No wheezing or rhonchi. Abdominal: General: Bowel sounds are normal. There is no distension. Palpations: Abdomen is soft. There is no mass. Tenderness: There is no abdominal tenderness. There is no right CVA tenderness, left CVA tenderness or guarding. Musculoskeletal: Cervical back: Normal range of motion and neck supple. Neurological: Mental Status: She is alert and oriented to person, place, and time. Mental status is at baseline. Psychiatric: Mood and Affect: Mood normal. Behavior: Behavior normal. Thought Content: Thought content normal. Judgment: Judgment normal. ASSESSMENT/PLAN: Sheila was seen today for obesity and thyroid problem. Diagnoses and all orders for this visit: Vitamin D deficiency - ergocalciferol (VITAMIN D2) 1,250 mcg (50,000 unit) capsule; Take 1 capsule (50,000 Units total) by mouth once a week for 8 doses. - Vitamin D 25 hydroxy; Future Other specified hypothyroidism - levothyroxine (SYNTHROID, LEVOTHROID) 150 MCG tablet; Take 1 tablet (150 mcg total) by mouth in the morning. - TSH with Reflex; Future Decrease levothyroxine from 175-150. Provided vitamin-D supplementation. Reassess vitamin-D and TSH in 8 weeks Telemed follow up. SONIA HANSON MD Family Medicine Physician [facility] Family [facility] / [facility] 09/26/23 This note was completed with voice recognition software. The document was reviewed for errors however some may still be present. Please do not hesitate to contact/Epic [facility] the author to verify any questions/concerns. documented in this encounter [facility] 08-10[facility]2023 History of Presen t illness Narrative Images from the original note were not included. [address] [place] [address] [facility] [id number] Patient: Sheila Amor Date of : 1985 Encounter Date: 08/10/2023 SUBJECTIVE: Chief Complaint: Chief Complaint Patient presents with [facility] Patient ID: Sheila Amor is a 37 y.o. female. Pleasant 37-year-old female here today for annual physical exam assessment of thyroid hormone Does have some symptoms of clinical hypothyroidism, recent TSH assessment and show of a TSH will need additional treatment. Preventative screening: -cervical cancer screening overdue -immunizations reviewed and up-to-date -metabolic labs: Overdue, obtained as above. - BMI 31, diet exercise counseling -tobacco, alcohol, substance history reviewed -diet and exercise counseling . The following portions of the patient's history were reviewed and updated as appropriate: allergies, current medications, past family history, past medical history, past social history, past surgical history and problem list. PHYSICAL EXAMINATION: Vitals: 08/10/23 0736 BP: 128/74 Pulse: 89 Temp: 37 C (98.6 F) SpO2: 99% Weight: 83.2 kg (183 lb 6.4 oz) Height: 162.6 cm (5' 4.02 ) Physical Exam Vitals reviewed. Constitutional: General: She is not in acute distress. Appearance: Normal appearance. Eyes: Extraocular Movements: Extraocular movements intact. Pupils: Pupils are equal, round, and reactive to light. Cardiovascular: Rate and Rhythm: Normal rate and regular rhythm. Pulses: Normal pulses. Heart sounds: Normal heart sounds. Pulmonary: Effort: Pulmonary effort is normal. No respiratory distress. Breath sounds: Normal breath sounds. No wheezing or rhonchi. Abdominal: General: Bowel sounds are normal. There is no distension. Palpations: Abdomen is soft. There is no mass. Tenderness: There is no abdominal tenderness. There is no right CVA tenderness, left CVA tenderness or guarding. Musculoskeletal: Cervical back: Normal range of motion and neck supple. Neurological: Mental Status: She is alert and oriented to person, place, and time. Mental status is at baseline. ASSESSMENT/PLAN: Sheila was seen today for [facility] care. Diagnoses and all orders for this visit: Annual physical exam - CBC auto differential; Future - Comprehensive metabolic panel; Future - TSH with Reflex; Future - Vitamin D 25 hydroxy; Future - Magnesium; Future - Lipid panel; Future Other specified hypothyroidism - levothyroxine (SYNTHROID, LEVOTHROID) 175 MCG tablet; Take 1 tablet (175 mcg total) by mouth in the morning. - CBC auto differential; Future - Comprehensive metabolic panel; Future - TSH with Reflex; Future - Vitamin D 25 hydroxy; Future - Magnesium; Future - Lipid panel; Future Preventative screening: -cervical cancer screening overdue -immunizations reviewed and up-to-date -metabolic labs: Overdue, obtained as above. - BMI 31, diet exercise counseling -tobacco, alcohol, substance history reviewed -diet and exercise counseling . SONIA HANSON MD Family Medicine Physician [facility] / [facility] 08/10/23 This note was completed with voice recognition software. The document was reviewed for errors however some may still be present. Please do not hesitate to contact/Epic msg the author to verify any questions/concerns. documented in this encounter [facility] Evaluation note Diagnosis Acquired hypothyroidism- Primary Unspecified hypothyroidism [facility] Diagnosis Annual physical exam- Primary Routine general medical examination at a health care facility Other specified hypothyroidism [facility] Diagnosis Vitamin D deficiency- Primary Other specified hypothyroidism [facility] Diagnosis Other specified hypothyroidism [facility] Diagnosis Acquired hypothyroidism- Primary Unspecified hypothyroidism [facility] Diagnosis Primary hypothyroidism- Primary Unspecified hypothyroidism [facility] Diagnosis Well woman exam with routine gynecological exam Routine gynecological examination Thyroid disease (CMS/HCC) Unspecified disorder of thyroid documented in this encounter [facility] HealthcareInstructionsNot on filedocumented in this encounterProAshtabula General [facility] SystemInstructionsNot on filedocumented in this encounterProAshtabula General Hospital SystemInstructionsNot on filedocumented in this encounterProAshtabula General Hospital SystemInstructionsNot on filedocumented in this encounterProAshtabula General Hospital System InstructionsNot on filedocumented in this encounterProMedica Health System Summary Purpose Family History No Family History Records FoundNo Family History Records FoundNo Family History Records FoundNo Family History Records FoundNo Family History Records Found Advance Directives No Advanced Directives Records FoundNo Advanced Directives Records FoundNo Advanced Directives Records FoundNo Advanced Directives Records FoundNo Advanced Directives Records Found Additional Source Comments INFORMATION SOURCE (unrecogn ized section and content) DATE CREATED AUTHOR 06/04/2022 [facility] DATE CREATED AUTHOR AUTHOR'S ORGANIZ ATION 06/29/2023 [facility] EPIC DATE CREATED AUTHOR AUTHOR'S ORGANIZ ATION 02/09/2024 [facility] DATE CREATED AUTHOR AUTHOR'S ORGANIZ ATION 04/27/2024 [facility] DATE CREATED AUTHOR AUTHOR'S ORGANIZ ATION 04/28/2024 [facility] Care Teams (unrecognized sec tion and content) Venue Coordinator Relationship Specialty Start Date End Date Sonia Hanson MD [address] [place] [address] PCP - General Internal Medicine 12/31/22 Venue Coordinator Relationship Specialty Start Date End Date Sonia Hanson MD [address] [place] [address] PCP - General Internal Medicine 12/31/22 Venue Coordinator Relationship Specialty Start Date End Date Sonia Hanson MD [address] [place] [address] PCP - General Internal Medicine 12/31/22 Venue Coordinator Relationship Specialty Start Date End Date Sonia Hanson MD [address] [place] [address] PCP - General Internal Medicine 12/31/22 Venue Coordinator Relationship Specialty Start Date End Date Sonia Hanson MD [address] [place] [address] PCP - General Internal Medicine 12/31/22 Venue Coordinator Relationship Specialty Start Date End Date Sonia Hanson MD [address] [place] [address] PCP - General Internal Medicine 12/31/22 Venue Coordinator Relationship Specialty Start Date End Date Sonia Hanson MD [address] [place] [address] PCP - General Family Medicine 05/30/23 Venue Coordinator Relationship Specialty Start Date End Date Sonia Hanosn MD [address] [place] [address] PCP - General Family Medicine 05/30/23 Reason for Visit (unrecogniz ed section and content) Reason Comments Establish Care Reason Comments Obesity Thyroid Problem Reason Comments Gynecologic Exam FOR RECORDS PERTAINING TO PATIENTS WHO ARE OR HAVE BEEN ENROLLED IN A CHEMICAL DEPENDENCY/SUBSTANCEABUSE PROGRAM, SOME INFORMATION MAY BE OMITTED. This clinical summary was aggregated from multiple sources. Caution should be exercised in using it in the provision of clinical care. This summary normalizes information from multiple sources, and as a consequence, information in this document may materially change the coding, format and clinical context of patient data. In addition, data may be omitted in some cases. CLINICAL DECISIONS SHOULD BE BASED ON THE PRIMARY CLINICAL RECORDS. [employer] [facility]. provides no warranty or guarantee of the accuracy or completeness of information in this document.
[2024-06-12 14:08] LABS: Age Gdln ACOG Testing Note (.); HPV Aptima Negative (Negative); IGP, Aptima HPV, rfx 16/18,45 Note (.)
== END 2024-06-05 19:58 | disposition home or self-care (01) ==
LOC: LAB 19:57
PROVIDERS: Visit Provider Obstetrics & Gynecology
DX: Z01.419 Encounter for gynecological examination (general) (routine) without abnormal findings (principal)
CPT/HCPCS: 87624; 88175

== ENCOUNTER 2025-06-23 20:12 | Outpatient (REF) | payer BC, SELFPAY ==
--- OUTSIDE RECORDS SUMMARY | 2025-06-23 16:00 | XMS_ITS | Encounter Summary ---
Author Organization [facility] Address [address] [place] [address] Care Team Providers Care Resident Care Provider Name Role Phone Sonia Perez MD Primary Care Provider [phone] Reason for Visit * ReasonCommentsWell Women Visit Encounter Details DateTypeDepartmentCare Team (Latest Contact Info)Owlucknuthz88/22/2025 4:00 PM ESTOffice Visit [facility] [address] [place] [id number] Tay Garcia DO [address] [place] [address] Well woman exam with routine gynecological exam Social History Tobacco UseTypesPacks/DayYears UsedDateSmoking Tobacco: NeverSmokeless Tobacco: NeverAlcohol UseStandard Drinks/WeekCommentsYes0 (1 standard drink = 0.6 oz pure alcohol)caffeine: noneAUDIT-CAnswerDate RecordedQ1: How often do you have a drink containing alcohol?2-3 times a week05/17/2023Q2: How many drinks containing alcohol do you have on a typical day when you are drinking?1 or 2 05/17/2023Q3: How often do you have six or more drinks on one occasion?Never 05/17/2023CommentsNoSex and Gender InformationValueDate RecordedSex Assigned at QpgbmGtmvqz57/21/2023 3:57 PM ESTLegal DqlYkixqe82/15/2023 8:00 PM EDTGender ZxahvsxiHgblyt09/21/2023 3:57 PM ESTSexual OrientationStraight 05/23/2023 3:57 PM ESTdocumented as of this encounter Plan of Treatment DateTypeDepartmentCare Team (Latest Contact Info)Tcmzztnrggq32/28/2026 10:00 AM ESTProcedure Visit [facility] [address] [place] [address] Tay Garcia DO [address] [place] [address] NameTypePriorityAssociated DiagnosesOrder SchedulePap SmearPathology and CytologyRoutine Well woman exam with routine gynecological exam Ordered: 06/23/2025HPV DNA probe, amplifiedMicrobiologyRoutine Well woman exam with routine gynecological exam Ordered: 06/23/2025documented as of this encounter Visit Diagnoses Diagnosis Well woman exam with routine gynecological exam Routine gynecological examination documented in this encounter Care Teams Team MemberRelationshipSpecialtyStart DateEnd Date Sonia Perez MD [address] [place] [address] PCP - GeneralFamily Kzrvpxfq03/28/23documented as of this encounter
--- OUTSIDE RECORDS SUMMARY | 2025-06-23 20:15 | XMS_ITS | Continuity of Care Document ---
Author Organization [facility] Address [address] [place] [address] Care Team Providers Care Tool And Equipment Rental Clerk Name Role Phone Sonia Perez MD Primary Care Provider [phone] Encounters DateTypeDepartmentCare SkruCvviqrpeagk49/22/2025ambvenu flowsheet [facility] [address] [place] [address] Tay Garcia DO 06/23/2025 4:00 PM ESTOffice Visit [facility] [address] [facility] [address] Tay Garcia DO Well woman exam with routine gynecological exam12/09/2024amboo flowsheet [facility] [address] [place] [address] Mitzy Ma MD 12/09/2024 9:10 AM EDTOffice Visit [facility] [address] [place] [address] Mitzy Ma MD Postablative hypothyroidism (Primary Dx); Vitamin D deficiency; Encounter for dietary szjigmjybwmt27/02/2025Orders Only [facility] [address] [place] [address] Mitzy Ma MD 08/23/2024amboo flowsheet [facility] [address] [place] [address] Mitzy Ma MD 08/23/2024 10:00 AM ESTOffice Visit [facility] [address] [place] [phone] Mitzy Ma MD Postablative hypothyroidism (Primary Dx); Vitamin D deficiency; Encounter for dietary yiuqtbwqqrwv17/12/2024Orders Only [facility] [address] [facility] [place] [address] Kathy Sanford LPN 4Clinisync Result Encounter N[facility] External Department Unsolicited Tay Garcia, DO 4Bamboo flowsheet [facility] [address] [place] [address] Tay Garcia, DO 06/05/2024 3:00 PM ESTOffice Visit [facility] [address] [place] [address] Tay Garcia, Well woman exam with routine gynecological exam; Thyroid ilggumb2406/27/2023 10:30 AM ESTProcedure Visit [facility] [place] [facility] [address] [place] [address] Tay Garcia, Encounter for IUD removal; Encounter for IUD oonusjiir35/28/2023Clinisync Result Encounter [facility] External Department Unsolicited Tay Garcia, DO 05/30/2023 3:00 PM ESTOffice Visit [facility] [address] [place] [address] Tay Garcia, Well woman exam with routine gynecological exam3Abstract [facility] [place] [facility] [address] [facility] [address] Tay Garcia, DO 05/25/2022eCW Legacy Documentation [facility] CONVERSION LEGACY 05/25/2022Legacy Lab [facility] CONVERSION [facility]GAC[facility] Tay Garcia, DO 08/17/2018Legacy Non Patient Presenting [facility] DATA CONVERSION LEGACY Lopez, Radha A, MD 07/15/2018 Non Patient Presenting [facility] DATA CONVERSION Radha Rayn MD 03/26/2018 Non Patient Presenting [facility] DATA CONVERSION Radha Ryan MD 11/13/2017 Non Patient Presenting [facility] DATA CONVERSION Radha Ryan MD 11/02/2017eCW Legacy Documentation [facility] DATA CONVERSION LEGACY 11/02/2017 Imaging [facility] DATA CONVERSION LEGSher Suero MD Epigastric pain; Abdominal distension (gaseous)10/31/2017 Non Patient Presenting [facility] DATA CONVERSION Radha Ryan MD 09/14/2017eCW Legacy Documentation [facility] DATA CONVERSION LEGACY 08/15/2017 Non Patient Presenting [facility] DATA CONVERSION Radha Ryan MD 08/15/2017 Non Patient Presenting [facility] DATA CONVERSION Radha Ryan MD Hypothyroidism, unspecified Allergies No known active allergies Medications MedicationSigDispense QuantityRefillsLast FilledStart DateEnd DateStatus Levonorgestrel 20 MCG/DAY intrauterine device 1 each by Intrauterine route if needed (.).Active levothyroxine (Synthroid) 25 MCG tablet Indications:Thyroid diseaseTake 1 tablet (25 mcg) by mouth in the morning. Take before meals. 30 tablet 1114Active levothyroxine (Synthroid, Levoxyl) 125 MCG tablet Indications:Postablative hypothyroidismTake 1 tablet (125 mcg) by mouth in the morning. Take before meals. 90 tablet 5ActiveHospital, Clinic, or Other Facility Administered Medication Ordered DoseRouteFrequencyStart DateEnd DateStatus Levonorgestrel intrauterine device Indications:Encounter for IUD qedllqcjfQJJydpgmibth73/26/2023Active Active Problems ProblemNoted DateDiagnosed DateWell woman exam with routine gynecological exam 06/05/2024 Family History Medical HistoryRelationNameCommentsDiabetesFatherAnxiety disorderSister 1 DepressionSister 1RelationNameStatusCommentsBrotherAliveDaughter 1AliveDaughter 2AliveFatherAliveMotherAliveSister 1AliveSister 2AliveSister 3Alive Social History Tobacco UseTypesPacks/DayYears UsedDateSmoking Tobacco: Never AssessedAUDIT-C AnswerDate RecordedQ1: How often do you have a drink containing alcohol?2-3 times a week05/17/2023Q2: How many drinks containing alcohol do you have on a typical day when you are drinking?1 or Q3: How often do you have six or more drinks on one occasion?Never05/17/2023Sex and Gender InformationValue Date RecordedSex Assigned at NguatMphide32/21/2023 3:57 PM ESTLegal SexFemale 09/14/2022 8:00 PM EDTGender VfubqufeSbtwpv59/21/2023 3:57 PM ESTSexual KxhiughbunaJuoixqfs88/21/2023 3:57 PM EST Last Filed Vital Signs Vital SignReadingTime TakenCommentsBlood Vbtppsur780/8412/09/2024 9:08 AM EDT Uauaq382812/09/2024 9:08 AM EDTTemperature--Respiratory Fpyn396012/09/2024 9:08 AM EDTOxygen Ckajcxltwm25%12/09/2024 9:08 AM EDTInhaled Oxygen Concentration-- Qwsebg68.5 kg (184 lb)12/09/2024 9:08 AM ZRVXgielf286 cm (5' 3 )12/09/2024 9:08 AM EDTBody Mass Index32.5906 9:08 AM EDT Plan of Treatment DateTypeDepartmentCare Team (Latest Contact Info)Nkuzalrgvai39/28/2026 10:00 AM ESTProcedure Visit [facility] [address] [facility] [place] [address] Tay Garcia DO [address] [facility] [address] [place] [place], [place] [address] Procedures Procedure NamePriorityDate/TimeAssociated FluxzmgsfCyjypdemOKMZwpfqrr63/02/2025 8:35 AM EDTT4, GOZMIfkmutc10/02/2025 8:35 AM EDTT3, YKEMSflhaus26/08/2024 8:35 AM EDTIGP,APTIMA HPV,AGE OWLJQfvlzlx70/04/2024 3:30 PM EST PAP XNKXAZnhkxlw97/04/2024 12:00 AM ESTPOCT , LUWZCOerqjbu09/26/2023 11:37 AM EST Encounter for IUD insertion IGP,APTIMA HPV,AGE XFCFVkgjvbg77/28/2023 3:25 PM EST PAP YMFAGSkyxsnb78/28/2023 12:00 AM ESTPAP ACOG PANEL 2: 30 TO 65Routine 05/25/2022 ABKKhfouwl68/03/2018 T4, ADHCPuqwfrf24/03/2018 US HEAD NECK SOFT PSIXHUSsjcrdw92/15/2018 12:00 PM EDT Hypothyroidism, unspecified RGWBybjhhx07/08/2018 T4, RXDXXwlqefn21/08/2018 Results * T3, free (12/02/2024 8:35 AM EDT)Specimen (Source)Anatomical Location / LateralityCollection Method / VolumeCollection TimeReceived TimeBloodVenous blood specimen / Unknown Narrative Authorizing ProviderResult TypeResult StatusHuntsman Mental Health Institutesteven Ma NMLAB BLOOD ORDERABLESFinal Result * TSH (12/02/2024 8:35 AM EDT) Only the most recent of3 resultswithin the time period is included. Specimen (Source)Anatomical Location / LateralityCollection Method / Volume Collection TimeReceived TimeBloodVenous blood specimen / Unknown Narrative Authorizing ProviderResult TypeResult StatusHuntsman Mental Health Institutesteven Ma NMLAB BLOOD ORDERABLESFinal Result * T4, free (12/02/2024 8:35 AM EDT) Only the most recent of3 resultswithin the time period is included. Specimen (Source)Anatomical Location / LateralityCollection Method / Volume Collection TimeReceived TimeBloodVenous blood specimen / Unknown Narrative Authorizing ProviderResult TypeResult StatusMitzy RYAN BLOOD ORDERABLESFinal Result * IGP,APTIMA HPV,AGE GDLN (06/05/2024 3:30 PM EST) Only the most recent of2 resultswithin the time period is included. ComponentValueRef RangeTest MethodAnalysis TimePerformed AtPathologist Signature AGE GDLN ACOG TESTINGNote.TBHComment: ?? TESTS ? RESULT ??FLAG ??UNITS ?REF RANGE ??LAB ?? Clinician Provided Cytology Information ?? Source.............Cervix ?? Other..............IUD ?? No. of containers..01 ThinPrep Vial Age Algo ACOG Kae... ??30-65 ? 01 ?FLAG LEGEND: ?L-Low Normal,H-High Normal,LL-Alert Low,HH-Alert High <-Panic Low,>-Panic High,A-Abnormal,AA-Critical Abnormal Performed at: 01 =G ?[facility] [place] ?? [address] [place], [place] ??[address] ?? Catie Nath MD, IGP, APTIMA HPV, RFX 16/18,45Note.TBHComment: ?? TESTS ? RESULT ??FLAG ??UNITS ?REF RANGE ??LAB DIAGNOSIS: ?02 ?? NEGATIVE FOR INTRAEPITHELIAL LESION OR MALIGNANCY. Specimen adequacy: ?02 ?? Satisfactory for evaluation. ??Endocervical and/or squamous metaplastic ?? cells (endocervical component) are present. Performed by: ? 02 ?? Jazz Ellison, Accounts Payable Technician (ASCP) . ? 02 Note: ? Note ?03 ?? The Pap smear is a screening test designed to aid in the ?? detection of premalignant and malignant conditions of the ?? uterine cervix. ??It is not a diagnostic procedure and ?? should not be used as the sole means of detecting cervical ?? cancer. ??Both false-positive and false-negative reports do ?? occur. Test Methodology: ? Note ?03 ?? This liquid based ThinPrep(R) pap test was screened with ?? the use of an image guided system. HPV Genotype Reflex ?? Note ?02 ?? Criteria not met, HPV Genotype not performed. ?FLAG LEGEND: ?L-Low Normal,H-High Normal,LL-Alert Low,HH-Alert High <-Panic Low,>-Panic High,A-Abnormal,AA-Critical Abnormal Performed at: [address] [facility] ?? [address] [facility] [place], [place] ??[address] ?? jP Pizarro PhD, 03 WB ?[facility] ?? [address] [place], [place] ??[address] ?? Catie Nath MD, HPV APTIMANegativeNegativeTBHComment: This nucleic acid amplification test detects fourteen high- risk HPV types (16,18,31,33,35,39,45,51,52,56,58,59,66,68) without differentiation. Performed at: ??=G - [facility] [address] [place], [place] ??[id number] Family Service Caseworker: Catie Nath MD, Phone: ??[phone] Performed at: ??THOMAS - [facility] [address], [place] ??[id number] Family Service Caseworker: Pj Pizarro PhD, Phone: ??[phone] Specimen (Source)Anatomical Location / LateralityCollection Method / Volume Collection TimeReceived Time06/05/2024 3:30 PM EST06/06/2024 6:55 AM EST Narrative [facility] - 06/12/2024 2:08 PM EST SWAB-SPATULA IUD CERVIX Authorizing ProviderResult TypeResult StatusCorey Radha DOLAB BLOOD ORDERABLES Final ResultPerforming OrganizationAddressCity/State/ZIP CodePhone Number [facility] TB[facility] * Pap Smear (06/05/2024 12:00 AM EST) Only the most recent of2 resultswithin the time period is included. Specimen (Source)Anatomical Location / LateralityCollection Method / Volume Collection TimeReceived TimeSwabCervical swab / Unknown Narrative Authorizing ProviderResult TypeResult StatusFazio Nurse Noms Bcp ObLAB CYTOLOGY ORDERABLESFinal ResultPerforming OrganizationAddressCity/State/ZIP CodePhone Number EXTERNAL LAB * POC , urine (06/27/2023 11:37 AM EST)ComponentValueRef RangeTest MethodAnalysis TimePerformed AtPathologist SignaturePreg Test, UrNegative Specimen (Source)Anatomical Location / LateralityCollection Method / Volume Collection TimeReceived GkjzLrwnb66/26/2023 11:37 AM EST Narrative Authorizing ProviderResult TypeResult StatusCorey Radha DOPOINT OF CARE TEST ENTER/EDIT ORDERABLESFinal Result * PAP ACOG PANEL 2: 30 TO 65 (05/25/2022)ComponentValueRef RangeTest Method Analysis TimePerformed AtPathologist SignatureAGE GDLN ACOG YVCSHXB99-01GCNU LEGACY EXTERNAL LABDIAGNOSIS:CommentNOMS LEGACY EXTERNAL LABComment: NEGATIVE FOR INTRAEPITHELIAL LESION OR MALIGNANCY. Performed at: ??WB SPECIMEN ADEQUACY:CommentNOMS LEGACY EXTERNAL LABComment: Satisfactory for evaluation. ??Endocervical and/or squamous metaplastic cells (endocervical component) are present. Performed at: ??WB PERFORMED BY:CommentNOMS LEGACY EXTERNAL LABComment: Nena Hay, Accounts Payable Technician (ASCP) Performed at: ??WB RESULT.[facility] EXTERNAL LABComment:Performed at: WBNOTE:CommentNOOVERLAKE [facility] EXTERNAL LABComment: The Pap smear is a screening test designed to aid in the detection of premalignant and malignant conditions of the uterine cervix. ??It is not a diagnostic procedure and should not be used as the sole means of detecting cervical cancer. ??Both false-positive and false-negative reports do occur. ? . Performed at: ??WB TEST METHODOLOGY:CommentNOOVERLAKE HOSPITAL MED[facility] EXTERNAL LABComment: This liquid based ThinPrep(R) pap test was screened with the use of an image guided system. Performed at: ??WB HPV APTIMANegativeNegativeNOOVERLAKE HOSPITAL MED[facility] EXTERNAL LABComment: This nucleic acid amplification test detects fourteen high-risk HPV types (16,18,31,33,35,39,45,51,52,56,58,59,66,68) without differentiation. Performed at: ??=G HPV GENOTYPE REFLEXCommentNOOVERLAKE [facility] EXTERNAL LABComment: Criteria not met, HPV Genotype not performed. Performed at: ??WB PERFORMING LAB:see noteNOOVERLAKE HOSPITAL MED[facility] EXTERNAL LABComment:[address] [facility] - [address] [place] [address] ,Ext. [phone] specimen (Source)Anatomical Location / LateralityCollection Method / VolumeCollection TimeReceived Time05/25/2022 Narrative Authorizing ProviderResult TypeResult StatusCorey Radha CANAS LABSFinal Result Performing OrganizationAddressCity/State/ZIP CodePhone Number [facility] EXTERNAL LAB * US head neck soft tissue (09/14/2017 12:00 PM EDT)Anatomical RegionLaterality ModalityHead, NeckUltrasoundSpecimen (Source)Anatomical Location / Laterality Collection Method / VolumeCollection TimeReceived Time09/14/2017 12:00 PM EDT Narrative 09/14/2017 12:00 PM EDT PERFORMED AT [facility] LOCATION:[id number] Procedure Note CONVERSION, GENERIC - 11/16/2022 PERFORMED AT [facility] LOCATION:[id number] Authorizing ProviderResult TypeResult StatusHeather Alvaro WARE US PROCEDURES Final Result Visit Diagnoses DiagnosisStart Date Hypothyroidism, unspecified 08/15/2017 Epigastric pain Abdominal pain, epigastric 11/02/2017 Abdominal distension (gaseous) 11/02/2017 Well woman exam with routine gynecological exam Routine gynecological examination 05/30/2023 Encounter for IUD removal 06/27/2023 Encounter for IUD insertion Insertion of intrauterine contraceptive device 06/27/2023 Well woman exam with routine gynecological exam Routine gynecological examination 06/05/2024 Thyroid disease Unspecified disorder of thyroid 06/05/2024 Postablative hypothyroidism Other postablative hypothyroidism 08/23/2024 Vitamin D deficiency 08/23/2024 Encounter for dietary consultation 08/23/2024 Postablative hypothyroidism Other postablative hypothyroidism 12/09/2024 Vitamin D deficiency 12/09/2024 Encounter for dietary consultation 12/09/2024 Well woman exam with routine gynecological exam Routine gynecological examination 06/23/2025 Care Teams Team MemberRelationshipSpecialtyStart DateEnd Date Sonia Perez MD [address] [facility] [address] PCP - GeneralFamily Lpjxvjzn25/28/23
--- OUTSIDE RECORDS SUMMARY | 2025-06-23 20:15 | XMS_ITS | Encounter Summary ---
Author Organization [facility] Address [address] [place] [address] Care Team Providers Care Licensed Direct Entry Midwife Name Role Phone Sonia Perez MD Primary Care Provider [phone] Encounter Details DateTypeDepartmentCare Team (Latest Contact Info)Yzwyoykhvdt08/22/2025amboo flowsheet [facility] [place] [facility] [address] [facility] [place] [address] Tay Garcia DO [address] [facility] [address] [place] [id number] Social History Tobacco UseTypesPacks/DayYears UsedDateSmoking Tobacco: NeverSmokeless [...] six or more drinks on one occasion?Never 3CommentsNoSex and Gender InformationValueDate RecordedSex Assigned at MwkceZwdygc19/21/2023 3:57 PM ESTLegal DbdKjvipz73/15/2023 8:00 PM EDTGender HexfhrdcYzmxzn64/21/2023 3:57 PM ESTSexual OrientationStraight 05/23/2023 3:57 PM ESTdocumented as of this encounter Plan of Treatment DateTypeDepartmentCare Team (Latest Contact Info)Xujpzhnxpld91/28/2026 10:00 AM ESTProcedure Visit [facility] [address] [facility] [address] Tay Garcia DO [address] [facility] [place] [address] documented as of this encounter Visit Diagnoses Not on filedocumented in this encounter Care Teams Team MemberRelationshipSpecialtyStart DateEnd Date Sonia Perez MD [address] [facility] [place] [address] PCP - GeneralFamily Orskyhrc69/28/23documented as of this encounter
--- OUTSIDE RECORDS SUMMARY | 2025-06-23 20:16 | XMS_ITS | Clinical Summary ---
Author Organization [employer] Address [id number] [address] [place] [address] Care Team Providers Care Card Stripper Name Role Phone Sonia Perez MD Primary Care Provider [phone] Allergies No known active allergies Medications MedicationSigDispense QuantityRefillsLast FilledStart DateEnd DateStatus levonorgestrel (MIRENA) 20 mcg/24 hours (5 yrs) 52 mg IUD 1 each by intrauterine route once.Active cholecalciferol 1,000 units tablet Indications:Vitamin D deficiencyTake 1 tablet (1,000 Units total) by mouth in the morning. 90 tablet 4Active Additional Information Patient not taking.Reported on 12/24/2024 mirtazapine (REMERON) 7.5 mg tablet Take 1 tablet (7.5 mg total) by mouth nightly. 90 tablet 4Active Additional Information Patient not taking.Reported on 12/24/2024 levothyroxine (SYNTHROID, LEVOTHROID) 112 MCG tablet Indications:Acquired hypothyroidismTake 1 tablet (112 mcg total) by mouth in the morning. 90 tablet 5Active Active Problems ProblemNoted DateDiagnosed YpigDnvzafdjqmnehc44/22/2019 Encounters DateTypeDepartmentCare WosyTcergnrzcro50/21/2025Telephone [facility] [place] [address] Estefania Macias RN 04/17/2025Results Follow-Up [facility] [address] [place] [address] Sonia Preez MD Thyroid profile includes TSH FT41Orders Only [facility] [address] [place] [address] [address] Sonia Perez MD Acquired evbjxglejmcjrv74/14/2025Travelfrom Last 3 Months Immunizations ImmunizationAdministration DatesNext DueInfluenza, Injectable, quadrivalent (PF) 05/18/2021(Deferred: Patient decision)Tdap09/07/2024 Family History Medical HistoryRelationNameCommentsDiabetesFatherSteve CarrizalesNo Known ProblemsMotherRelationNameStatusCommentsFatherSteve CarrizalesAliveMotherAlive Social History Tobacco UseTypesPacks/DayYears UsedDateSmoking Tobacco: NeverPassive Smoke Exposure: NeverSmokeless Tobacco: Never Tobacco Cessation:Counseling Given: Not Answered Alcohol UseStandard Drinks/WeekCommentsYes0 (1 standard drink = 0.6 oz pure alcohol)rarelySocial Connection and Isolation PanelAnswerDate RecordedIn a typical week, how many times do you talk on the phone with family, friends, or neighbors?More than three times a week11/15/2021How often do you get together with friends or relatives?Once a week11/15/2021How often do you attend religious or evangelical services?Never2Do you belong to any clubs or organizations such as religious groups, unions, fraternal or athletic groups, or school groups?No 11/15/2021How often do you attend meetings of the clubs or organizations you belong to?Never11/15/2021re you , , , , never , or living with a partner?Nzglpxs4011/15/2021UDIT-CAnswerDate RecordedQ1: How often do you have a drink containing alcohol?2-4 times a month11/15/2021Q2: How many drinks containing alcohol do you have on a typical day when you are drinking?1 or Q3: How often do you have six or more drinks on one occasion?Never11/15/2021verall Financial Resource Strain (CARDIA)AnswerDate RecordedHow hard is it for you to pay for the very basics like food, housing, medical care, and heating?Not hard at all11/15/2021HQ-2AnswerDate RecordedTotal Urxre90008/06/2023[facility] of Occupational Health - Occupational Stress QuestionnaireAnswerDate RecordedDo you feel stress - tense, restless, nervous, or anxious, or unable to sleep at night because yourmind is troubled all the time - these days?Only a xnpqds1211/15/2021Exercise Vital SignAnswerDate Recorded On average, how many days per week do you engage in moderate to strenuous exercise (like a brisk walk)?3 days11/15/2021n average, how many minutes do you engage in exercise at this level?20 min11/15/2021RAPARE - TransportationAnswer Date RecordedIn the past 12 months, has lack of transportation kept you from medical appointments or from getting medications?No11/15/2021In the past 12 months, has lack of transportation kept you from meetings, work, or from getting things needed for daily living?No11/15/2021hildcareAnswerDate RecordedDo problems getting child care nurse make it difficult for you to work or study?No 11/15/2021EmploymentAnswerDate RecordedDo you need help finding a local career center and/or a training program?No11/15/2021Hunger ScreeningAnswerDate Recorded Within the past 12 months we worried whether our food would run out before we got money to buy more.Never True12/24/2024Within the past 12 months the food we bought just didn't last and we didn't have money to get more.Never True 12/24/2024Purpose - LifeAnswerDate RecordedI have a purpose and direction in my life.Agree11/15/2021EducationAnswerDate RecordedWhat is the highest level of school you have completed or the highest degree you have received?Associate degree: occupational, technical, or vocational /10/2021Comments NoSex and Gender InformationValueDate RecordedSex Assigned at BirthFemale 11/15/2021 12:18 PM EDTLegal CzwTcrgxd48/06/2015 11:47 AM EDTGender Identity Mkpagx9311/15/2021 12:18 PM EDTSexual YkwyievubkxRegutnlg95/16/2022 12:18 PM EDT Last Filed Vital Signs Vital SignReadingTime TakenCommentsBlood Ofxfwyis051/75012/24/2024 9:19 AM EDT Rdedp0151/24/2025 9:19 AM KZWYqxapylsdbe34.8 ??C (98.2 ??F)09/07/2024 7:29 AM ESTRespiratory Vaec445209/07/2024 7:29 AM ESTOxygen Kxuqiycfwx580%09/07/2024 7:29 AM ESTInhaled Oxygen Concentration--Koyrri91.3 kg (179 lb 3.2 oz)12/24/2024 9:19 AM JDFRhtwdw585.6 cm (5' 4 )12/24/2024 9:19 AM EDTBody Mass Index30.76012/24/2024 9:19 AM EDT Plan of Treatment Health MaintenanceDue DateLast DoneCommentsAdult BMI Follow Up Plan12/14/2005 Influenza Ppozfis8403/03/2025Depression Abkkrranr59/dult BMI Gbjpbbvwq46Tobacco Zvodxtqus56Pap Smear TaP,Tdap and Td Vaccines (2 - Td or Tdap)09/07/2034 09/07/2024 Medical Devices Not on file Procedures Procedure NamePriorityDate/TimeAssociated DiagnosisCommentsTHYROID PROFILE INCLUDES TSH XK2Fysrpab97/14/2025 11:21 AM EDT Acquired hypothyroidism from Last 3 Months Results * (ABNORMAL) Thyroid profile includes TSH FT4 (04/15/2025 11:21 AM EDT)Component ValueRef RangeTest MethodAnalysis TimePerformed AtPathologist SignatureFREE T4 1.150.61 - 1.60 ng/dL04/15/2025 2:17 PM [facility] TSH0.44(L)0.49 - 4.67 uIU/mL04/15/2025 2:17 PM [facility] LAB[facility]ATORYSpecimen (Source)Anatomical Location / LateralityCollection Method / VolumeCollection TimeReceived TimeBloodVenous blood / UnknownVenipuncture / Gsaknjs7204/15/2025 11:21 AM EDT1 11:23 AM EDT Narrative Authorizing ProviderResult TypeResult StatusStephany Dalton MDLAB BLOOD ORDERABLESFinal ResultPerforming OrganizationAddressCity/State/ZIP CodePhone Number [facility] [address] [place] [address], [place] [phone] from Last 3 Months Insurance Care Teams Team MemberRelationshipSpecialtyStart DateEnd Date Sonia Perez MD [address] [place] [address] [place] [address] PCP - GeneralInternal Medicine12/31/22
== END 2025-06-23 20:13 | disposition home or self-care (01) ==
LOC: LAB 20:12
PROVIDERS: Visit Provider Obstetrics & Gynecology
DX: Z01.419 Encounter for gynecological examination (general) (routine) without abnormal findings (principal)
CPT/HCPCS: 88175